=== PATIENT | male | born 1975 | race Two or more races ===

== ENCOUNTER 2018-04-18 03:25 | Emergency (ER) | payer OTHER ==
[2018-04-18] MEDS ORDERED: ONDANSETRON 4 MG/2 ML VIAL IVP ONE (03:34)
[2018-04-18] MEDS ORDERED: NS 1,000 ML IV ONE ×2 (03:34→03:35)
--- NOTE | 2018-04-18 03:47 | EDPHY ---
H & P Stated Complaint: abd pain, n/V x 4 days Time Seen by Provider: 04/18/18 03:45 HPI/ROS: HPI CHIEF COMPLAINT: Abdominal pain, nausea, vomiting, diarrhea. HISTORY OF PRESENT ILLNESS: This is a very pleasant 42-year-old male, he has a physician, cook boat, he has not been on any recent antibiotics and no known C diff exposure however he presents emergency room with abdominal pain. Patient not been in the hospital knee there is a patient nor is a physician for while. He presents emergency room with abdominal pain he describes as crampy rather global. On Tuesday night into Tuesday morning he got sick with nausea vomiting and diarrhea a describes it is very mucus diarrhea brown, watery. No blood. Also admits to 2 episodes of vomiting but no blood. The nausea vomiting and diarrhea has gotten better. In fact he ate tonight, no diarrhea however he developed worsening abdominal pain abdominal cramping rather diffuse. No fever. Denies muscle aches joint pain. Denies chest pain or shortness of breath. His main complaint ongoing abdominal pain. Patient reports to me his resting heart rate is in the low 40s. Past Medical History: Denies significant medical history Past Surgical History: Denies significant surgical history Social History: Denies drugs alcohol tobacco. Family History: Noncontributory ROS REVIEW OF SYSTEMS: 10 Systems were reviewed and negative with the exception of the elements mentioned in the history of present illness. Exam Constitutional triage nursing summary reviewed, vital signs reviewed, awake/ alert. Heart rate in the 40s. Patient reports to me this is normal for him. Eyes normal conjunctivae and sclera, EOMI, PERRLA. HENT normal inspection, atraumatic, moist mucus membranes, no epistaxis, neck supple/ no meningismus, no raccoon eyes. Respiratory clear to auscultation bilaterally, normal breath sounds, no respiratory distress, no wheezing. Cardiovascular rate normal, regular rhythm, no murmur, no edema, distal pulses normal. Gastrointestinal mild tender palpation diffusely, no rebound, no guarding, normal bowel sounds, no distension, no pulsatile mass. Genitourinary no CVA tenderness. Musculoskeletal no midline vertebral tenderness, full range of motion, no calf swelling, no tenderness of extremities, no meningismus, good pulses, neurovascularly intact. Skin pink, warm, & dry, no rash, skin atraumatic. Neurologic awake, alert and oriented x 3, AAOx3, moves all 4 extremities equally, motor intact, sensory intact, CN II-XII intact, normal cerebellar, normal vision, normal speech. Psychiatric normal mood/affect. Heme/Lymph/Immune no lymphadenopathy. Differential Diagnosis: Differential diagnosis includes but is not limited to and in no particular order: Bowel obstruction, appendicitis, gallbladder disease, diverticulitis, colitis, enteritis, perforated viscus, gastritis, GERD , esophagitis, urinary tract infection, pyelonephritis, kidney stones Medical Decision Making: Plan for this patient IV establishment IV fluid bolus , IV Zofran for nausea, 2 L, basic blood work, CT scan abdomen pelvis with IV contrast, stool studies if able to provide, re-evaluate. Re-evaluation: EKG: Time of EKG 4:08 a.m., sinus bradycardia rate of 38 no signs of acute ischemia no ST elevation or ST depression no signs of block. CT scan abdomen pelvis with IV contrast faxed me by direct radiology 4:45 a.m. This shows mesenteric adenopathy and mild misting strain in the mesentery in the left wilder abdomen the findings are nonspecific in the nature could be reactive wound infection inflammatory enteritis. Additionally less common differential considerations would include sclerosing mesenteritis or mesenteric lymphoma. I discussed the CT report with the patient extensively. Will touch base with GI about further evaluation of this and follow-up care in if he needs a repeat CT scan. [id number]: Discussed CT report with him. Also I spoke with Gastroenterology Dr. Judith Shane, he will follow up with her about the mesenteric lymphadenopathy, he should surveillance cell for B type symptoms. He understands this. Received 15 mg IV Toradol for pain control here in the emergency room. 2 L of fluid. Labs have been reviewed unremarkable He had an EKG due to bradycardia. He states his heart rate is always in the low 40s. I have given him all his lab work, EKG, CT scan results. Return precautions discussed with the patient Stool study pending. Return if worsening abdominal pain, fever, vomiting. Stool study pending. Source: Patient - Personal History Current Tetanus Diphtheria and Acellular Pertussis (TDAP): Yes - Medical/Surgical History Hx Asthma: No Hx Chronic Respiratory Disease: No Hx Diabetes: No Hx Cardiac Disease: No Hx Renal Disease: No Hx Cirrhosis: No Hx Alcoholism: No Hx HIV/AIDS: No Hx Splenectomy or Spleen Trauma: No Other PMH: denies - Social History Smoking Status: Never smoked Constitutional: Initial Vital Signs Temperature (C) 36.5 C 04/18/18 03:28 Heart Rate 43 L 04/18/18 03:28 Respiratory Rate 20 04/18/18 03:28 Blood Pressure 148/85 H 04/18/18 03:28 O2 Sat (%) 97 04/18/18 03:28 O2 Delivery Mode Room Air Allergies/Adverse Reactions: No Known Allergies Allergy (Unverified 04/18/18 03:28) Home Medications: Medication Instructions Recorded NK [No Known Home Meds] 04/18/18 Medical Decision Making - Data Points Laboratory Results: Laboratory Results 04/18/18 04:00 04/18/18 04:00 04/18/18 04/18/18 04/18/18 04:53 04:00 04:00 WBC 5.15 10^3/uL 10^3/uL (3.80-9.50) RBC 5.44 10^6/uL 10^6/uL (4.40-6.38) Hgb 15.0 g/dL g/dL (13.7-17.5) Hct 44.7 % % (40.0-51.0) MCV 82.2 fL fL (81.5-99.8) MCH 27.6 pg L pg (27.9-34.1) MCHC 33.6 g/dL g/dL (32.4-36.7) RDW 13.2 % % (11.5-15.2) Plt Count 217 10^3/uL 10^3/uL (150-400) MPV 9.7 fL fL (8.7-11.7) Neut % (Auto) 63.1 % % (39.3-74.2) Lymph % (Auto) 26.4 % % (15.0-45.0) [place] % (Auto) 7.0 % % (4.5-13.0) Eos % (Auto) 2.5 % % (0.6-7.6) Baso % (Auto) 0.8 % % (0.3-1.7) Nucleat RBC Rel Count 0.0 % % (0.0-0.2) Absolute Neuts (auto) 3.25 10^3/uL 10^3/uL (1.70-6.50) Absolute Lymphs (auto) 1.36 10^3/uL 10^3/uL (1.00-3.00) Absolute Monos (auto) 0.36 10^3/uL 10^3/uL (0.30-0.80) Absolute Eos (auto) 0.13 10^3/uL 10^3/uL (0.03-0.40) Absolute Basos (auto) 0.04 10^3/uL 10^3/uL (0.02-0.10) Absolute Nucleated RBC 0.00 10^3/uL 10^3/uL (0-0.01) Immature Gran % 0.2 % % (0.0-1.1) Immature Gran # 0.01 10^3/uL 10^3/uL (0.00-0.10) Sodium 139 mEq/L mEq/L (135-145) Potassium 3.9 mEq/L mEq/L (3.5-5.2) Chloride 106 mEq/L mEq/L (97-110) Carbon Dioxide 26 mEq/l mEq/l (22-31) Anion Gap 7 mEq/L mEq/L (6-14) BUN 14 mg/dL mg/dL (7-23) Creatinine 0.9 mg/dL mg/dL (0.7-1.3) Estimated GFR > 60 Glucose 125 mg/dL H mg/dL (70-100) Calcium 9.3 mg/dL mg/dL (8.5-10.4) Total Bilirubin 1.0 mg/dL mg/dL (0.1-1.4) Conjugated Bilirubin 0.2 mg/dL mg/dL (0.0-0.5) Unconjugated Bilirubin 0.8 mg/dL mg/dL (0.0-1.1) AST 29 IU/L IU/L (17-59) ALT 33 IU/L IU/L (21-72) Alkaline Phosphatase 58 IU/L IU/L (38-126) Total Protein 7.6 g/dL g/dL (6.3-8.2) Albumin 4.5 g/dL g/dL (3.5-5.0) Lipase 101 IU/L IU/L (23-300) Urine Color YELLOW Urine Appearance CLEAR Urine pH 6.0 (5.0-7.5) Ur Specific [place] 1.011 (1.002-1.030) Urine Protein NEGATIVE (NEGATIVE) Urine Ketones NEGATIVE (NEGATIVE) Urine Blood NEGATIVE (NEGATIVE) Urine Nitrate NEGATIVE (NEGATIVE) Urine Bilirubin NEGATIVE (NEGATIVE) Urine Urobilinogen NEGATIVE EU EU (0.2-1.0) Ur Leukocyte Esterase NEGATIVE (NEGATIVE) Urine Glucose NEGATIVE (NEGATIVE) Medications Given: Discontinued Medications Sodium Chloride (Ns) 1,000 mls @ 0 mls/hr IV EDNOW ONE; Wide Open PRN Reason: Protocol Stop: 04/18/18 03:35 Last Admin: 04/18/18 03:53 Dose: 1,000 mls Sodium Chloride (Ns) 1,000 mls @ 0 mls/hr IV ONCE ONE PRN Reason: Wide Open Stop: 04/18/18 03:36 Last Admin: 04/18/18 03:55 Dose: 1,000 mls Ketorolac Tromethamine (Toradol) 15 mg IVP EDNOW ONE Stop: 04/18/18 05:42 Last Admin: 04/18/18 05:47 Dose: 15 mg Ondansetron HCl (Zofran) 4 mg IVP EDNOW ONE Stop: 04/18/18 03:35 Last Admin: 04/18/18 03:54 Dose: 4 mg Departure - Departure Disposition: Home, Routine, Self-Care Clinical Impression: Abdominal pain, Diarrhea Condition: Good Instructions: Dehydration (ED), Acute Diarrhea (ED), Acute Abdominal Pain (ED) , Mesenteric Adenitis (ED), Adenitis (ED) Additional Instructions: 1. Continue your bland diet over the next 24-48 hours 2. Return to the emergency room if there is worsening abdominal pain, fever, vomiting. 3. Return emergency room if there is worsening abdominal pain, fever, vomiting. 4. Follow up with Gastroenterology. 5. Check on youe CT results for the final read today. 6. Call about your stool studies later today. Referrals: Jumana Meza [Primary Care Provider] - As per Instructions Judith Shane MD [Medical Doctor] - As per Instructions
[2018-04-18 04:20] LABS: PLATELET COUNT 217 10^3/uL (150-400)
[2018-04-18] MEDS ORDERED: IOHEXOL 350mgI/ML (OMNIPAQUE) 150 ML BTL IV ONE (04:34)
[2018-04-18 05:27] VITALS: BP 124/68
[2018-04-18] MEDS ORDERED: KETOROLAC 15 MG/1 ML SDV IVP ONE (05:41)
--- NOTE | 2018-04-18 08:16 | CPEKG ---
Test Reason : OPEN Blood Pressure : / mmHG Vent. Rate : 038 BPM Atrial Rate : 038 BPM P-R Int : 142 ms QRS Dur : 091 ms QT Int : 515 ms P-R-T Axes : 016 071 047 degrees QTc Int : 410 ms Sinus bradycardia Confirmed by Thomas Helms ([id number]) on 04/18/2018 8:16:03 AM Referred By: Thomas Helms Confirmed By:Thomas Helms
== END 2018-04-18 06:44 | disposition home or self-care (01) ==
LOC: EEVIPCON 03:25
DX: R10.9 Unspecified abdominal pain (principal); R19.7 Diarrhea, unspecified; E86.9 Volume depletion, unspecified
CPT/HCPCS: 96374; J1885; J2405; Q9967